=== PATIENT | female | born 1985 | race Caucasian/White ===

== ENCOUNTER 2019-09-19 07:02 | Inpatient (IN) | payer OTHER ==
[2019-09-19] MEDS ORDERED: HYDROcodone/Acetaminophen 5/325 mg Tablet PO PRN ×2 (07:19)
[2019-09-19] MEDS ORDERED: Ondansetron PF 4 MG/2 ML Vial IVP PRN ×2 (07:19→10:09)
[2019-09-19] MEDS ORDERED: Lidocaine 1% (PF) 30 ML VIAL SC PRN (07:19)
[2019-09-19] MEDS ORDERED: NS / Oxytocin 40 units/1000ml 1,000 ML IV PRN (07:19)
[2019-09-19] MEDS ORDERED: hydrALAZINE 20 MG/ML VIAL SLOW IVP PRN ×2 (07:19→10:09)
[2019-09-19] MEDS ORDERED: Promethazine HCl 25 MG/ML VIAL IM PRN ×2 (07:19→10:19)
[2019-09-19] MEDS ORDERED: Ibuprofen 800 MG TAB PO PRN (07:19)
[2019-09-19] MEDS ORDERED: NS / Oxytocin 40 units/1000ml 1,000 ML ONE (07:24)
[2019-09-19] MEDS ORDERED: Lactated Ringer's 1,000 ML IV SCH ×2 (07:30→16:45)
[2019-09-19] MEDS ORDERED: Butorphanol Tartrate 1 MG/ML VIAL ONE (07:31)
--- NOTE | 2019-09-19 07:34 | HP ---
TIME OF INTERVENTION: 0700 hours. LOCATION: Trauma room bed 2. This is a patient of Dr. Paul Schafer This is a very cursory H and P as it is done as an urgent basis as she is being transported at this moment up to labor and delivery after my 1st evaluation was completed. HISTORY OF PRESENT ILLNESS: The patient is a 33-year-old female, 3, para 2, who we were called at 0700 hours that she was "delivering a 24 week ." Frieda, our nurse was the 1st to arrive and I arrived about 1 minute after. We arrived within 3-4 minutes of call. When I arrived in the trauma room 2, the baby had delivered and was grossly macerated and contused. There was no signs of life. Apgars were zero and zero. Placenta is still in situ. When I arrived and after confirming no active bleed, we transected the cord and allowed the mother to hold the child at her request. is at bedside. I do not have any further information at this time. PAST OBSTRETICAL HISTORY: Patient states that her other 2 deliveries were at term as she did have an IUD this , which was removed (patient got on an IUD). PHYSICAL EXAMINATION: VITALS SIGNS: Appear stable at this time and there is no active bleeding. ASSESSMENT: This is a patient who is now status post vaginal delivery at about 23 weeks by her dates of a nonviable child. By inspection, baby had demised already by delivery as there were signs of slight macerations and contusions. PLAN: 1. We will take the patient straight to labor and delivery. 2. Dr. Paul Schafer has been notified. 3. Placenta in situ. 4. Routine admission labs. 5. Pastoral care. Job ID: [id number]
--- NOTE | 2019-09-19 08:04 | HP ---
ADDENDUM: TIME: 7:24 am In brief, I have talked to Dr. Schafer in person, who has now arrived in Labor and Delivery. He states that the patient called him before her arrival and stated that the baby was actually delivering before she got to the hospital. She came by private car. She said that she was "holding the baby in" per Dr. Schafer's conversation and it seemed to be breech. I am not sure when the actual time of demise was because I am assuming it happened in transport as the baby looked demised already on arrival. They also state that they have the IUD which was expelled. I have not seen this though, but Dr. Schafer will do the evaluation as he is now here. I have done the admission orders in the EMR. Job ID: [id number]
[2019-09-19] MEDS ORDERED: Fentanyl 100 MCG/2 ML VIAL ONE ×2 (08:23→10:29)
[2019-09-19] MEDS ORDERED: Midazolam HCl 2 mg/2 ml Vial ONE (08:23)
[2019-09-19 08:25] VITALS: BMI 31.6
[2019-09-19 08:46] LABS: Hemoglobin 11.7 g/dL (12.0-16.0); Mean Corpuscular HGB CONC 32.3 g/dL (32.0-36.0); Mean Corpuscular Hemoglobin 26.1 pg (27.0-31.0); Mean Platelet Volume 7.7 fL (7.4-10.4); Platelet Count 277 thou/uL (130-400); RBC Distribution Width 12.6 % (11.5-14.5); Red Blood Cell (RBC) Count 4.49 mill/uL (4.20-5.40); White Blood Cell (WBC) Count 13.5 thou/uL (4.8-10.8)
[2019-09-19] MEDS ORDERED: CEFAZOLIN 2 GM in Premix Bag 1 BAG IVPB SCH (09:15)
[2019-09-19] MEDS ORDERED: Oxytocin 10 UNITS/ML VIAL ONE ×2 (09:38→09:57)
[2019-09-19 09:43] LABS: Syphilis Antibody Nonreactive (Nonreactive); Syphilis Antibody Index 0.04 S/CO (<1.00 Non-Reactive)
[2019-09-19 09:44] LABS: HBSAg Index 0.18 S/CO (0-0.99); HIV (1/2) Antibody/Antigen Non-Reactive (NonReactive); HIV 1/2 INDEX 0.13 S/CO (<1.00); Hep B Surf Ag Non-Reactive S/CO (NonReactive)
[2019-09-19] MEDS ORDERED: Zolpidem Tartrate 5 MG TAB PO PRN (10:09)
[2019-09-19] MEDS ORDERED: diphenhydrAMINE 25 MG CAP PO PRN (10:09)
[2019-09-19] MEDS ORDERED: Bisacodyl 10 MG SUPP PR PRN (10:09)
[2019-09-19] MEDS ORDERED: Acetaminophen/Codeine 30-300mg Tablet PO PRN ×2 (10:09)
[2019-09-19] MEDS ORDERED: Milk Of Magnesia 30 ML UDCUP PO PRN (10:09)
[2019-09-19] MEDS ORDERED: NS / Oxytocin 40 units/1000ml 1,000 ML IV SCH (10:15)
[2019-09-19] MEDS ORDERED: Ondansetron HCl/PF 4 MG/2 ML Vial IVP PRN (10:19)
[2019-09-19] MEDS ORDERED: Promethazine HCl 25 MG/ML VIAL SLOW IVP PRN (10:19)
[2019-09-19 11:11] LABS: Hemoglobin 12.5 g/dL (12.0-16.0); Mean Corpuscular HGB CONC 34.7 g/dL (32.0-36.0); Mean Corpuscular Hemoglobin 29.2 pg (27.0-31.0); Mean Corpuscular Volume 84.1 fL (78.0-98.0); Mean Platelet Volume 8.6 fL (7.4-10.4); Platelet Count 157 thou/uL (130-400); RBC Distribution Width 13.9 % (11.5-14.5); Red Blood Cell (RBC) Count 4.29 mill/uL (4.20-5.40)
[2019-09-19] MEDS: Misoprostol 200 MCG TAB ONE ×2 (11:37→13:45)
[2019-09-19] MEDS: Methylergonovine 0.2 MG/ML VIAL IM PRN ×2 (11:49→13:14)
[2019-09-19] MEDS: Ibuprofen 800 MG TAB PO SCH (12:25)
[2019-09-19] MEDS ORDERED: Methylergonovine 0.2 MG/ML VIAL IM SCH (13:45)
[2019-09-19] MEDS ORDERED: Misoprostol 200 MCG TAB PO SCH (14:00)
[2019-09-19] MEDS ORDERED: PROPOFOL 200 MG/20 ML VIAL ONE (14:41)
[2019-09-19] MEDS ORDERED: PHENYLEPHRINE-NS 100 MCG/ML 10 ML SYRINGE ONE (14:41)
[2019-09-19] MEDS ORDERED: Succinylcholine Chloride 20 MG/ML 10 ml SYRINGE FS ONE (14:41)
[2019-09-19] MEDS ORDERED: Lidocaine 1% PF 5 ML VIAL ONE (14:41)
[2019-09-19 16:08] LABS: Hemoglobin 11.3 g/dL (12.0-16.0); Mean Corpuscular HGB CONC 34.7 g/dL (32.0-36.0); Mean Corpuscular Hemoglobin 29.2 pg (27.0-31.0); Mean Corpuscular Volume 84.1 fL (78.0-98.0); Mean Platelet Volume 7.7 fL (7.4-10.4); Platelet Count 209 thou/uL (130-400); RBC Distribution Width 13.6 % (11.5-14.5); Red Blood Cell (RBC) Count 3.89 mill/uL (4.20-5.40); White Blood Cell (WBC) Count 21.3 thou/uL (4.8-10.8)
[2019-09-19] MEDS ORDERED: Ferrous Sulfate 325 MG TAB PO SCH (17:00)
[2019-09-20] MEDS: Ibuprofen 800 MG TAB PO SCH ×2 (06:46→14:11)
[2019-09-20] MEDS: Docusate Calcium (SURFAK) 240 MG CAP PO SCH ×2 (06:46→09:40)
[2019-09-20 07:04] LABS: Hemoglobin 8.5 g/dL (12.0-16.0); Mean Corpuscular HGB CONC 34.6 g/dL (32.0-36.0); Mean Corpuscular Hemoglobin 29.4 pg (27.0-31.0); Mean Platelet Volume 7.2 fL (7.4-10.4); Platelet Count 175 thou/uL (130-400); RBC Distribution Width 13.8 % (11.5-14.5); Red Blood Cell (RBC) Count 2.89 mill/uL (4.20-5.40)
[2019-09-20] MEDS ORDERED: Adacel (T-DAP) 0.5 ML SYRINGE IM ONE (10:09)
--- NOTE | 2019-09-21 10:52 | OP ---
DATE OF PROCEDURE: 09/19/2019 PREOPERATIVE DIAGNOSES: 1. Stillbirth. 2. Retained placenta. POSTOPERATIVE DIAGNOSES: 1. Stillbirth. 2. Retained placenta. PROCEDURE PERFORMED: 1. Surgical extraction of placenta. 2. Uterine curettage. FINDINGS: 1. Status post 23-week stillbirth delivered in the emergency room. 2. Retained placenta. 3. hemorrhage. SPECIMENS REMOVED: Placenta and placental fragments. COMPLICATIONS: None. ESTIMATED BLOOD LOSS: 1. 1400 mL preoperatively. 2. 1000 mL intraoperatively. HISTORY AND INDICATIONS: Mrs. 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 Jen's current was complicated by conception with an IUD in place. She presented at 10 weeks and 2 days with a positive test, and she was unable to identify the vaginal string. Ultrasound revealed a viable intrauterine with the IUD visualized at the fundus of the uterus. After lengthy consultation and discussion with Jason Armendariz, decision was made to continue the because of their beliefs and values. Yolas continued to be complicated by intermittent bleeding, a large subchorionic bleed and placenta previa. Her bleeding eventually resolved at approximately 22 weeks. Serial ultrasound was performed to both monitor the baby, the placenta, and the location of the IUD. On the morning of 09/19/2019, Jen called and reported that she had passed the IUD. She felt pressure and discomfort and was very concerned that she was actively delivering the baby. She was told to present to the emergency department at [facility] as soon as possible. The patient reports that on the way to the hospital, she felt more pressure and discomfort and could actually feel the baby's feet. According to the emergency department and Dr. Chandra's notes, she delivered in the ED. The 23-week fetus was nonviable and appeared to be significantly bruised and traumatized secondary to her extreme prematurity and non-viability. The patient was then sent to Labor and Delivery, where I was there to evaluate her. There was a very small umbilical cord, which appeared friable. The patient continued to have brisk vaginal bleeding, and despite giving Cytotec and vigorous manual massage, the placenta did not deliver. A decision was made to take Jen to the OR for delivery of the placenta and anesthesia. The patient and her were thoroughly counseled at length, which she was also consented for use of blood products. Prior to her being taken to the operating room, she had an estimated blood loss of approximately 1400. Surgical disclosures were signed and placed in the chart. The patient and her given the opportunity to ask any questions stating concerns and these were answered to their satisfaction. DESCRIPTION OF PROCEDURE: After consent and counseling, the patient was taken to the operating room and an adequate level of anesthesia was obtained via general anesthesia. The patient was placed in the [email or web address] leg holders in the high leg position. Pelvic examination under anesthesia was performed. The cervix was noted to be 3 to 4 cm dilated, and the placenta was not palpable. The patient had a very sharply retroverted and retroflexed uterus. The patient was prepped and draped in usual sterile fashion for vaginal surgery. In and out catheterization of the bladder was performed, which drained of clear urine. Attention was then turned to performing the surgical extraction of the placenta. A weighted speculum was placed in the vaginal canal and visualization of the cervix was obtained. A single-tooth tenaculum was placed on the anterior lip of the cervix for traction. Using the uterine dressing forceps, the placenta was surgically removed from the uterus. Multiple pieces were extracted and eventually the remainder of the placenta was removed. Following the extraction of the placenta, sharp curettage was performed removing any of the products of conception. Good hemostasis was noted. While in the operating room, the patient had several large clots, which were passed and it was felt that there was a blood loss of approximately a 1000 mL including the clot and active bleeding during the procedure. The patient was given 2 units of blood intraoperatively. Her postoperative H and H were stable at 12 and 35. Vigorous uterine massage was performed intraoperatively and good hemostasis was noted. The patient was also given Pitocin via her IV fluids. She had previously been given 800 mcg of Cytotec while in Labor and Delivery. Lap, sponge, and needle counts were correct x3. Estimated blood loss both preoperatively and postoperatively was approximately 2400 mL. The patient was awakened and taken to the postanesthesia care unit in good condition. Immediately following surgery, the patient and her were made aware of the surgical procedure and operative findings. Questions were answered to their satisfaction. The patient will be sent to Labor and delivery postoperatively for recovery, continued observation and bereavement counseling. Job ID: [id number]
== END 2019-09-20 14:20 | disposition home or self-care (01) | DRG 797 ==
LOC: L&D/OP 07:02 → L&D 08:00
PROVIDERS: ADMIT Obstetrics & Gynecology; ATTEND Obstetrics & Gynecology
PROC: 10E0XZZ Delivery of Products of Conception, External Approach (ICD-10-PCS; principal; 2019-09-19)
PROC: 10D17ZZ Extraction of Products of Conception, Retained, Via Natural or Artificial Opening (ICD-10-PCS; 2019-09-19)
PROC: 30233N1 Transfusion of Nonautologous Red Blood Cells into Peripheral Vein, Percutaneous Approach (ICD-10-PCS; 2019-09-19)
DX: O60.12X0 Preterm labor second trimester with preterm delivery second trimester, not applicable or unspecified (principal); O36.4XX0 Maternal care for intrauterine death, not applicable or unspecified; Z37.1 Single stillbirth; O72.0 Third-stage hemorrhage; Z3A.23 23 weeks gestation of pregnancy
CPT/HCPCS: 36415; 36430; 51702; 76815; 85027; 86780; 86850; 86900; 86901; 87340; 87389; 88305; 99285; J0595; J0690; J2001; J2210; J2250; J2590; J2704; J3010; P9016